=== PATIENT | male | born 1960 | race Caucasian/White ===

== ENCOUNTER 2017-12-15 10:23 | Emergency (ER) | payer OTHER ==
[~2017-12-15] VITALS: Ht 198.1 cm; Wt 108.0 kg
[2017-12-15 10:29] VITALS: BP 114/63; PULSE 70; RESP 16; TEMP 97.6; O2SAT 97
--- NOTE | 2017-12-15 10:39 | PD ---
HPI Chief Complaint: Syncope/Near-Syncope Time Seen by Provider: 10:37 Travel History International Travel<30 days: No Contact w/Intl Traveler<30days: No Traveled to known affect area: No History of Present Illness HPI 57-year-old male came to the emergency room with history of a syncopal episode when he was at his urologists office today. Patient says that he was getting a minor procedure done to check for urinary retention. His urologist had just done injecting him with some fluid in the bladder and had asked him to go to the bathroom to urinate. Patient says he was in pain and discomfort when he tried to urinate. He felt lightheaded and passed out. When he woke up he was on the ground looking at his urologist. He was brought to the emergency room by his . Patient does have a cut on his scalp on the right side which bled some. As he feels little bit woozy right now but otherwise okay. Patient has never had a syncopal episode in the past. Patient was fasting since midnight. No history of chest pain. Patient is not on any blood thinners. REPLACED BY [facility] Past Medical History Narrative Medical List of his past medical, surgical, social and family history is reviewed from the nursing note. Hx Anticoagulant Therapy: No Social History Tobacco Use: No Allergies-Medications (Allergen,Severity, Reaction): Coded Allergies: No Known Allergies (Unverified , 12/15/17) Comments No known drug allergies. Reported Meds & Prescriptions Reported Meds & Active Scripts Active Bacitracin Topical 500 Unit/Gm Oint 1 Applic TOPICAL BID Narrative Medication Awaiting for the nurse to do the medical reconciliation. Review of Systems Except as stated in HPI: all other systems reviewed are Neg Neurologic: Positive: Syncope Physical Exam Narrative GENERAL: Awake, alert, anxious, mild distress SKIN: Focused skin assessment warm/dry. HEAD: 3 cm laceration on the right parietal area that has stopped bleeding. There is dried blood around it. EYES: Pupils equal and round. No scleral icterus. No injection or drainage. ENT: No nasal bleeding or discharge. Mucous membranes pink and moist. NECK: Trachea midline. No JVD. CARDIOVASCULAR: Regular rate and rhythm. No murmur appreciated. RESPIRATORY: No accessory muscle use. Clear to auscultation. Breath sounds equal bilaterally. GASTROINTESTINAL: Abdomen soft, non-tender, nondistended. Hepatic and splenic margins not palpable. MUSCULOSKELETAL: No obvious deformities. No clubbing. No cyanosis. No edema. NEUROLOGICAL: Awake and alert. No obvious cranial nerve deficits. Motor grossly within normal limits. Normal speech. PSYCHIATRIC: Appropriate mood and affect; insight and judgment normal. Data Data Last Documented VS Orders Orders Electrocardiogram (12/15/17 10:47) Basic Metabolic Panel (Bmp) (12/15/17 10:47) Complete Blood Count With Diff (12/15/17 10:47) Ct Brain W/O Iv Contrast(Rout) (12/15/17 10:47) Ecg Monitoring (12/15/17 10:47) Iv Access Insert/Monitor (12/15/17 10:47) Oximetry (12/15/17 10:47) Sodium Chloride 0.9% Flush (Ns Flush) (12/15/17 11:00) Sodium Chlor 0.9% 1000 Ml Inj (Ns 1000 M (12/15/17 10:47) Blood Glucose (12/15/17 10:47) Orthostatic Vital Signs (12/15/17 10:48) Ibuprofen (Motrin) (12/15/17 12:15) Ice / Cold Pack PRN (12/15/17 12:11) Ed Discharge Order (12/15/17 12:11) Tetanus/Diphtheria Tox Adult (Tetanus/Di (12/15/17 12:15) Labs Laboratory Tests Test 12/15/17 11:00 White Blood Count 11.2 TH/MM3 Red Blood Count 5.07 MIL/MM3 Hemoglobin 15.3 GM/DL Hematocrit 45.2 % Mean Corpuscular Volume 89.2 FL Mean Corpuscular Hemoglobin 30.2 PG Mean Corpuscular Hemoglobin Concent 33.8 % Red Cell Distribution Width 11.9 % Platelet Count 237 TH/MM3 Mean Platelet Volume 9.0 FL Neutrophils (%) (Auto) 85.4 % Lymphocytes (%) (Auto) 9.1 % Monocytes (%) (Auto) 5.0 % Eosinophils (%) (Auto) 0.4 % Basophils (%) (Auto) 0.1 % Neutrophils # (Auto) 9.6 TH/MM3 Lymphocytes # (Auto) 1.0 TH/MM3 Monocytes # (Auto) 0.6 TH/MM3 Eosinophils # (Auto) 0.0 TH/MM3 Basophils # (Auto) 0.0 TH/MM3 CBC Comment DIFF FINAL Differential Comment Blood Urea Nitrogen 15 MG/DL Creatinine 0.94 MG/DL Random Glucose 99 MG/DL Calcium Level 8.5 MG/DL Sodium Level 142 MEQ/L Potassium Level 3.9 MEQ/L Chloride Level 107 MEQ/L Carbon Dioxide Level 29.0 MEQ/L Anion Gap 6 MEQ/L Estimat Glomerular Filtration Rate 83 ML/MIN MDM Medical Decision Making Medical Screen Exam Complete: Yes Emergency Medical Condition: Yes Medical Record Reviewed: Yes Interpretation(s) Twelve-lead EKG was reviewed by me. Normal sinus rhythm, normal axis, nonspecific ST-T wave changes. Heart rate of 69 bpm. Differential Diagnosis Intracranial bleed, scalp hematoma, scalp laceration Narrative Course 11:[address] scan of the brain is negative for any intracranial bleed. Blood test results are within normal limit. Patient was given a liter of IV fluid bolus. Orthostatic vital signs were within normal limit. I will close the wound with staple. Please refer to my procedure note. Patient will be discharged after that. He was also given a tetanus shot. Procedures Procedure Narrative LACERATION LOCATION: Right parietal scalp LENGTH: 3 cm NUMBER OF STITCHES/LEONEL: 3 leonel REPAIR: The area of the laceration was prepped with Betadine and sterilely draped. The laceration was infiltrated with None. The wound was copiously irrigated and explored without evidence of foreign body, tendon injury or neurovascular injury. The wound was closed using a stapler. This was a single layer repair. A sterile dressing was applied. The patient was advised to keep the dressing clean and dry. Patient tolerated the procedure well. EKG Prior to Arrival: No Diagnosis Primary Impression: Vasovagal syncope Additional Impression: Scalp laceration Qualified Codes: S01.01XA - Laceration without foreign body of scalp, initial encounter Referrals: Primary Care Physician Additional Instructions: Please return to the ER if the condition worsens or any other new concerns. Keep the wound clean and dry. Apply the antibiotic ointment prescribed to you as per the prescription direction until the leonel out. The leonel need to come out in 7-10 days. He could either come to the emergency room or go to your primary care to get this taken out. Med/Other Pt SpecificInfo: Prescription(s) given Scripts Bacitracin Topical (Bacitracin Topical) 500 Unit/Gm Oint 1 APPLIC TOPICAL BID for Infection, #30 GM 0 Refills Prov: Loly Cho MD 12/15/17 Disposition: 01 DISCHARGE HOME Condition: Stable Loly Cho MD Dec 15, 2017 10:39
[2017-12-15 10:40] VITALS: BP 124/85; PULSE 72; RESP 18; O2SAT 96
[2017-12-15] MEDS ORDERED: SODIUM CHLOR 0.9% 1000 ML INJ 1,000 ML IV ONE (10:47)
[2017-12-15 10:50] VITALS: O2SAT 96
[2017-12-15] MEDS ORDERED: SODIUM CHLORIDE 0.9% FLUSH 10 ML FLUSH IVF PRN (11:00)
[2017-12-15 11:14] VITALS: BP_SYST 116; BP_SYST 120; BP_SYST 133; BP_DIAS 70; BP_DIAS 77; BP_DIAS 82
[2017-12-15 11:14] LABS: AUTOMATED NEUTROPHIL # 9.6 TH/MM3 (1.8-7.7); BASOPHIL % 0.1 % (0.0-2.0); EOSINOPHIL % 0.4 % (0.0-4.0); HEMATOCRIT 45.2 % (39.0-51.0); HEMOGLOBIN 15.3 GM/DL (13.0-17.0); LYMPH % 9.1 % (9.0-44.0); MEAN CELL VOLUME 89.2 FL (80.0-100.0); MEAN CORPUSCULAR HEMOGLOBIN 30.2 PG (27.0-34.0); MEAN CORPUSCULAR HGB CONC 33.8 % (32.0-36.0); MONOCYTE # 0.6 TH/MM3 (0-0.9); NEUT % 85.4 % (16.0-70.0); PLATELET COUNT 237 TH/MM3 (150-450); RED BLOOD COUNT 5.07 MIL/MM3 (4.50-5.90); RED CELL DISTRIBUTION WIDTH 11.9 % (11.6-17.2); WHITE BLOOD COUNT 11.2 TH/MM3 (4.0-11.0)
[2017-12-15 11:32] LABS: CALCIUM 8.5 MG/DL (8.5-10.1)
[2017-12-15 11:36] LABS: CREATININE 0.94 MG/DL (0.60-1.30)
--- NOTE | 2017-12-15 11:39 | RADRPT ---
EXAM DATE/TIME: 12/15/2017 11:25 [facility] COMPARISON: No previous studies available for comparison. INDICATIONS : Syncopal episode after urinary procedure. Hit head. Right occipital laceration. RADIATION DOSE: 65.28 CTDIvol (mGy) MEDICAL HISTORY : None SURGICAL HISTORY : Tonsillectomy. Hernia repair. Knee surgery. ENCOUNTER: Initial ACUITY: 1 day PAIN SCALE: 4/10 LOCATION: Right occipital TECHNIQUE: Multiple contiguous axial images were obtained of the head. Using automated exposure control and adj ustment of the mA and/or kV according to patient size, radiation dose was kept as low as reasonably a chievable to obtain optimal diagnostic quality images. DICOM format image data is available electro nically for review and comparison. FINDINGS: CEREBRUM: The ventricles are normal for age. No evidence of midline shift, mass lesion, hemorrhage or acute in farction. No extra-axial fluid collections are seen. POSTERIOR FOSSA: The cerebellum and brainstem are intact. The 4th ventricle is midline. The cerebellopontine angle i s unremarkable. EXTRACRANIAL: The visualized portion of the orbits is intact. SKULL: The calvaria is intact. Right cephalohematoma No evidence of skull fracture. CONCLUSION: Right cephalhematoma. Intracranial contents unremarkable. Brad Rodney MD FACR on December 15, 2017 at 11:35 Board Certified Radiologist. This report was verified electronically.
[2017-12-15] MEDS ORDERED: BACI500O9 TOPICAL (12:01)
[2017-12-15] MEDS ORDERED: TETANUS/DIPHTHERIA TOXOID ADULT 0.5 ML VIAL IM ONE (12:15)
[2017-12-15] MEDS ORDERED: IBUPROFEN 600 MG TAB PO ONE (12:15)
[2017-12-15 12:20] VITALS: BP 134/85; PULSE 74; RESP 18; O2SAT 97
--- NOTE | 2017-12-15 21:53 | EKG ---
Date Performed: 12/15/2017 Time Performed: 10:59:23 PTAGE: 57 years EKG: Sinus rhythm NORMAL ECG PREVIOUS TRACING : 03/30/2001 18.43 DOCTOR: Jennifer Mallory Interpretating Date/Time 12/15/2017 21:51:59
== END 2017-12-15 12:29 | disposition home or self-care (01) ==
LOC: PHED 10:23
DX: R55 Syncope and collapse (principal); S01.01XA Laceration without foreign body of scalp, initial encounter; Z23 Encounter for immunization
CPT/HCPCS: 12002; 70450; 80048; 85025; 90471; 90714; 93005; 96360; 99285; J7030